=== PATIENT | female | born 1990 | race American Indian/Alaskan Native ===

== ENCOUNTER → 2019-05-16 | Emergency (ER) | payer SELFPAY ==
[2019-05-16 09:49] VITALS: BP 139/87
--- NOTE | 2019-05-16 13:13 | Emergency Department Report ---
Chief Complaint: Extremity Injury, Upper Stated Complaint: R FINGER INJURY Time Seen by Provider: 05/16/19 12:11 - HPI History of Present Illness: This is a 28-year-old female here report that she has a cut to her right finger after injury from door. She reports that this happened and 1 day ago and the area will not heal. She reports pain around site where cut is located. Denies any other injuries. Pain is 5/10 worse with movement. Denies any bleeding, discharge from site. Denies taking any medication for pain prior to coming to the hospital. Tetanus vaccine is up-to-date - ROS Review of Systems: Skin:Laceration to right third finger otherwise all other systems are negative. - Exam Vital Signs: Vital Signs 05/16/19 09:36 Temperature 97.4 F L Pulse Rate 71 Respiratory 16 Rate Blood Pressure 139/87 O2 Sat by Pulse 98 Oximetry Physical Exam: This is a 28-year-old female well-nourished well-developed in no acute distress. Extremity: Right hand with normal exam except mild pain with movement to right third digit at the distal phalanx. Laceration delayed healing noted. Radial ulnar pulse +2 Skin: Superficial laceration noted to volar of right third digits distally. Laceration with delayed healing without any signs of infection. MSE screening note: Focused history and physical exam performed. Due to findings the following was ordered: ED Medical Decision Making - Medical Decision Making Patient with laceration 1 day and I discussed with her that I am unable to repair laceration due to timeframe. Patient has no bony abnormality to affected area. She voices understanding. I discuss the patient that she needs to follow-up with her primary care and she was understanding. I also discussed with her she needs to continue to keep affected area clean and dry and to put Band-Aid over affected site. She agreed to follow-up with her primary care and medically screened out with signed medical history and form. ED Disposition for MSE Clinical Impression: Simple laceration Disposition: MED SCREENING EXAM-LEFT Condition: Stable Referrals: PRIMARY CARE, [Primary Care Provider] - 2-3 Days
== END | disposition left against medical advice (07) ==
LOC: ED 09:34
DX: S61.212A Laceration without foreign body of right middle finger without damage to nail, initial encounter (principal); X58.XXXA Exposure to other specified factors, initial encounter; Y93.89 Activity, other specified; Y92.89 Other specified places as the place of occurrence of the external cause; Y99.8 Other external cause status